=== PATIENT | female | born 1955 | race Caucasian/White ===

== ENCOUNTER 2018-06-16 14:48 | Outpatient (CLI) | payer BC | END 2018-06-16 14:49 | disposition home or self-care (01) | LOC: BICMAMMO 14:48 | PROVIDERS: ATTEND Family Medicine | DX: Z12.31 Encounter for screening mammogram for malignant neoplasm of breast (principal) | CPT/HCPCS: 77063; 77067 ==

== ENCOUNTER 2019-08-03 08:44 | Emergency (ER) | payer BC ==
[2019-08-03] MEDS ORDERED: Ketorolac Tromethamine 30 MG/ML VIAL ONE (09:49)
--- NOTE | 2019-08-03 10:20 | ULT ---
VENOUS ULTRASOUND LEFT LOWER EXTREMITY: DATE: 08/03/2019. COMPARISON: None. HISTORY: Recent travel, left lower extremity pain, assess for DVT. TECHNIQUE: Multiplanar guzman scale sonographic imaging venous structures of the left lower extremity obtained wit h color flow and spectral analysis. FINDINGS: Left common femoral vein, greater saphenous vein, profunda femoral vein, femoral vein, popliteal vein , and posterior tibial vein are patent. Normal blood flow, augmentation, and compression. No eviden ce for DVT. IMPRESSION: No evidence for deep venous thrombosis of the left lower extremity. POS: OFF
== END 2019-08-03 10:47 | disposition home or self-care (01) ==
LOC: SCSER 08:44
DX: S76.312A Strain of muscle, fascia and tendon of the posterior muscle group at thigh level, left thigh, initial encounter (principal); X58.XXXA Exposure to other specified factors, initial encounter
CPT/HCPCS: 96372; J1885

== ENCOUNTER 2019-08-05 03:56 | Emergency (ER) | payer BC ==
[2019-08-05] MEDS ORDERED: Ketorolac Tromethamine 30 MG/ML VIAL ONE (04:45)
[2019-08-05 05:23] LABS: Bacteria/HPF None Seen HPF (None Seen); Bilirubin Negative (Negative); Blood, Urine Trace (Negative); Clarity Clear (Clear); Glucose, Urine (Dipstick) Normal (Negative); Leukocyte Negative Leu/uL (Negative); Nitrite Negative (Negative); Protein, Urine (Dipstick) Negative (Neg-Trace); Squamous Epithelial None Seen HPF (0-3); Urobilinogen Normal mg/dL (Less than 2); WBC/HPF 0-3 HPF (0-3)
[2019-08-05 06:25] LABS: #Eosinphils 0.1 thou/uL (0.0-0.7); #Lymphocytes 2.3 thou/uL (1.20-3.40); #Monocytes 0.7 thou/uL (0.11-0.59); #Neutrophils 3.7 thou/uL (1.40-6.50); %Basophils 0.6 % (0.0-1.0); %Eosinophils 1.7 % (0.0-10.0); %Monocytes 10.1 % (0.0-10.0); %Neutrophils 53.7 % (42.0-75.0); Hemoglobin 12.9 g/dL (12.0-16.0); Mean Corpuscular HGB CONC 33.8 g/dL (32.0-36.0); Mean Corpuscular Hemoglobin 31.7 pg (27.0-31.0); Mean Corpuscular Volume 93.6 fL (78.0-98.0); Mean Platelet Volume 6.4 fL (7.4-10.4); Platelet Count 257 thou/uL (130-400); RBC Distribution Width 11.8 % (11.5-14.5); Red Blood Cell (RBC) Count 4.06 mill/uL (4.20-5.40); White Blood Cell (WBC) Count 6.9 thou/uL (4.8-10.8)
[2019-08-05 06:46] LABS: ALT (SGPT) 12 U/L (8-55); AST (SGOT) 17 U/L (5-34); Albumin 4.2 g/dL (3.4-4.8); Alkaline Phosphatase 71 U/L (40-150); Anion Gap 11 mmol/L (10-20); BUN (Urea Nitrogen) 15 mg/dL (9.8-20.1); Bilirubin, Total 0.4 mg/dL (0.2-1.2); Calc. Creatinine Clearance 0 mL/min (70-130); Calcium 9.7 mg/dL (7.8-10.44); Carbon Dioxide 28 mmol/L (23-31); Chloride 103 mmol/L (98-107); Estimated GFR-MDRD 78; Globulin 2.8 g/dL (2.4-3.5); Glucose 99 mg/dL (80-115); Lipase 63 U/L (8-78); Potassium 3.5 mmol/L (3.5-5.1); Sodium 138 mmol/L (136-145)
== END 2019-08-05 07:10 | disposition home or self-care (01) ==
LOC: ERS 03:56
DX: M54.5 Low back pain (principal); R10.30 Lower abdominal pain, unspecified
CPT/HCPCS: 36415; 80053; 81003; 81015; 83690; 85025; 96372; 99283; J1885

== ENCOUNTER 2019-08-06 16:15 | Emergency (ER) | payer BC ==
[2019-08-06 16:59] LABS: #Basophils 0.1 thou/uL (0.0-0.2); #Eosinphils 0.1 thou/uL (0.0-0.7); #Lymphocytes 2.1 thou/uL (1.20-3.40); #Monocytes 0.6 thou/uL (0.11-0.59); #Neutrophils 4.7 thou/uL (1.40-6.50); %Basophils 1.1 % (0.0-1.0); %Eosinophils 0.8 % (0.0-10.0); %Lymphocytes 27.7 % (21.0-51.0); %Monocytes 8.5 % (0.0-10.0); %Neutrophils 61.9 % (42.0-75.0); Hemoglobin 13.7 g/dL (12.0-16.0); Mean Corpuscular HGB CONC 34.4 g/dL (32.0-36.0); Mean Corpuscular Hemoglobin 31.2 pg (27.0-31.0); Mean Corpuscular Volume 90.6 fL (78.0-98.0); Mean Platelet Volume 6.2 fL (7.4-10.4); Platelet Count 267 thou/uL (130-400); White Blood Cell (WBC) Count 7.5 thou/uL (4.8-10.8)
[2019-08-06] MEDS ORDERED: Fentanyl 100 MCG/2 ML VIAL ONE ×2 (17:12→18:19)
[2019-08-06 17:13] LABS: ALT (SGPT) 28 U/L (8-55); AST (SGOT) 37 U/L (5-34); Albumin 4.4 g/dL (3.4-4.8); Alkaline Phosphatase 74 U/L (40-150); Anion Gap 13 mmol/L (10-20); BUN (Urea Nitrogen) 14 mg/dL (9.8-20.1); Bilirubin, Total 0.4 mg/dL (0.2-1.2); CK (CPK) 64 U/L (29-168); Calc. Creatinine Clearance 0 mL/min (70-130); Carbon Dioxide 28 mmol/L (23-31); Chloride 103 mmol/L (98-107); Estimated GFR-MDRD 64; Globulin 3.2 g/dL (2.4-3.5); Glucose 136 mg/dL (80-115); Potassium 3.6 mmol/L (3.5-5.1); Protein, Total 7.6 g/dL (6.0-8.3); Sodium 140 mmol/L (136-145)
[2019-08-06 17:27] LABS: Bilirubin Negative (Negative); Blood, Urine Small (Negative); Glucose, Urine (Dipstick) Negative (Negative); Leukocyte Small (Negative); Nitrite Negative (Negative); Protein, Urine (Dipstick) Trace mg/dL (Neg-Trace); Urobilinogen 0.2 mg/dL (Less than 2)
[2019-08-06 17:30] LABS: Clarity Hazy (Clear)
[2019-08-06 17:33] LABS: Bacteria/HPF 1+ HPF (None Seen); RBC/HPF 0-3 HPF (0-3); WBC/HPF 0-3 HPF (0-3)
--- NOTE | 2019-08-06 19:43 | CT ---
CT OF THE ABDOMEN AND PELVIS WITH IV CONTRAST: 08/06/19 HISTORY: History of abdominal and back pain for a week. COMPARISON: None. FINDINGS: Lung bases are clear. No focal hepatic lesion is evident. The pancreas, adrenal glands and kidneys appear within normal limits. The spleen is normal appearing. No free fluid or enlarged lymph nodes are evident. There are mild vascular calcifications involving the distal abdominal aorta. The reproductive structures, bladder, rectum and perirectal soft tissues are unremarkable appearing. There is a mild amount of retained stool within the colon. There is a normal sized retrocecal appendi x. The appendix is normal in caliber. No lymphadenopathy or free fluid is evident. There is mild heterotopic ossification involving the left greater trochanter. Small bone island is se en within the right aspect of the sacrum. There is scattered degenerative and osteoarthritic change. Benign bone hemangiomas within T12. There is also bone hemangioma within L3. IMPRESSION: No acute abnormality. POS: BH
== END 2019-08-06 20:40 | disposition home or self-care (01) ==
LOC: SCSER 16:15
DX: K59.00 Constipation, unspecified (principal); Z79.899 Other long term (current) drug therapy
CPT/HCPCS: 36415; 74177; 80053; 81003; 81015; 82550; 85025; 85652; 86140; 96374; 96375; 96376; J1170; J3010

== ENCOUNTER 2019-08-07 03:01 | Emergency (ER) | payer BC ==
[2019-08-07] MEDS ORDERED: Ondansetron ODT 4 MG TAB ONE (03:29)
[2019-08-07] MEDS ORDERED: Fleet Enema 133 ML BOT ONE (03:31)
[2019-08-07] MEDS ORDERED: Bisacodyl 10 MG SUPP ONE (04:21)
--- NOTE | 2019-08-07 08:03 | RAD ---
RADIOGRAPH CHEST ONE VIEW RADIOGRAPH ABDOMEN 2 VIEWS: DATE: 08/07/2019 HISTORY: 64-year-old female with abdominal pain, nausea, and emesis. FINDINGS: There are no airspace densities or pulmonary edema. The lateral costophrenic angles are sharp. There is no cardiomegaly. There is no evidence of pneumothorax or pneumoperitoneum. There is no evidence of dilated small bowel loops, differential air-fluid levels, or organomegaly. En teric contrast material and moderately large volume of stool, in right hemicolon. Large amount of colonic gas throughout the large intestine. IV contrast material in the urinary bladder. These are al l from recent CT. IMPRESSION: 1) No acute cardiopulmonary findings. 2) no evidence of bowel obstruction.
== END 2019-08-07 05:34 | disposition home or self-care (01) ==
LOC: SCSER 03:01
DX: K59.00 Constipation, unspecified (principal); M54.5 Low back pain
CPT/HCPCS: 74022; Q0162

== ENCOUNTER 2019-08-08 03:53 | Observation (INO) | payer BC ==
[2019-08-08] MEDS ORDERED: Ketorolac Tromethamine 30 MG/ML VIAL ONE (05:03)
[2019-08-08 05:36] LABS: #Basophils 0.1 thou/uL (0.0-0.2); #Eosinphils 0.1 thou/uL (0.0-0.7); #Lymphocytes 2.5 thou/uL (1.20-3.40); #Monocytes 0.7 thou/uL (0.11-0.59); #Neutrophils 5.8 thou/uL (1.40-6.50); %Basophils 0.8 % (0.0-1.0); %Eosinophils 0.8 % (0.0-10.0); %Lymphocytes 27.7 % (21.0-51.0); %Monocytes 7.1 % (0.0-10.0); %Neutrophils 63.5 % (42.0-75.0); Hemoglobin 14.9 g/dL (12.0-16.0); Mean Corpuscular HGB CONC 34.3 g/dL (32.0-36.0); Mean Corpuscular Hemoglobin 30.9 pg (27.0-31.0); Mean Corpuscular Volume 90.2 fL (78.0-98.0); Mean Platelet Volume 5.6 fL (7.4-10.4); Platelet Count 284 thou/uL (130-400); RBC Distribution Width 11.6 % (11.5-14.5); Red Blood Cell (RBC) Count 4.81 mill/uL (4.20-5.40); White Blood Cell (WBC) Count 9.1 thou/uL (4.8-10.8)
[2019-08-08 05:40] LABS: Anion Gap 13 mmol/L (10-20); BUN (Urea Nitrogen) 20 mg/dL (9.8-20.1); Calc. Creatinine Clearance 0 mL/min (70-130); Calcium 10.2 mg/dL (7.8-10.44); Carbon Dioxide 29 mmol/L (23-31); Chloride 99 mmol/L (98-107); Estimated GFR-MDRD 62; Glucose 113 mg/dL (80-115); Potassium 3.8 mmol/L (3.5-5.1); Sodium 137 mmol/L (136-145)
[2019-08-08 06:26] LABS: Bilirubin Negative (Negative); Blood, Urine Small (Negative); Clarity Slightly Cloudy (Clear); Glucose, Urine (Dipstick) Negative (Negative); Leukocyte Small (Negative); Nitrite Negative (Negative); Protein, Urine (Dipstick) 30 mg/dL (Neg-Trace); Urobilinogen 0.2 mg/dL (Less than 2)
[2019-08-08] MEDS ORDERED: Morphine 4 MG/ML VIAL ONE (06:32)
[2019-08-08 06:33] LABS: Bacteria/HPF Rare-Few HPF (None Seen); RBC/HPF 0-3 HPF (0-3); Squamous Epithelial 0-3 HPF (0-3); WBC/HPF 0-3 HPF (0-3)
[2019-08-08] MEDS ORDERED: Acetaminophen 325 MG TAB ONE (07:45)
--- NOTE | 2019-08-08 07:47 | CT ---
CTA OF THE THORAX UTILIZING IV CONTRAST AND PE PROTOCOL AND 3D REFORMATTED IMAGING: INDICATION: A 64-year-old female with back pain and recent travel out of the country. COMPARISON: None. FINDINGS: No central or segmental pulmonary embolus is evident. There is mild ectasia of the ascending aorta m easuring 3.2 cm. No enlarged lymph nodes are evident. No confluent airspace opacity or pleural effu amira is evident. No pneumothorax is demonstrated. Visualized upper abdomen reveals no acute abnorma lity. No acute osseous abnormality is evident. IMPRESSION: 1. No central or segmental pulmonary embolus. 2. Mild ectasia of the ascending aorta 3. No acute cardiopulmonary abnormality. POS: BH
--- NOTE | 2019-08-08 08:54 | PDOC.FPRHP ---
- History of Present Illness Chief Complaint: back pain History of Present Illness: Patient has visited an outside ED multiple times this week with back pain. She reports that on 07/25 she had a R hamstring strain and had been seen by Dr. Trotter, who encouraged her to rest. She noticed on 07/31 she started to develop lower back pain that she describes as dull, hot, constant pain. On 08/02 she had been traveling on a [place] from [place] and had a hard time getting comfortable. On 08/03 She was first seen at the ED in [facility] and they prescribed her tylenol 3, which she reported did not help her pain. That night she started to notice some mid-back pain. On 08/06 she was re-evaluated by Dr Trotter who said that her hamstring was recovering well, and said that her back pain may be related to IT band strain. She also had some reported nausea and vomiting, but this only occurred after she had the CT scan at the [facility] ED. She has had reported constipation as well, with last BM . She states that she has also been having some upper back pain in between her shoulder blades, but that this is likely due to her not being able to get comfortable in bed the last few nights due to her lower back pain. She reports that the only thing that has improved her pain has been sitting in the hottub. She states that after she gets out of the hottub she will have relief of the pain for 20-30 minutes before it returns. She states that the morphine and toradol that she received in the ED have not helped. Denies cp, sob, symptoms of saddle anesthesia, numbness or weakness in lower extremities, incontinence. Denies recent trauma to her back, recent MVA. She does lift weights and reports that she does do deadlifts, and had been working out during the time period between 07/25-07/31. ED Course: During her multiple ED visits she has received Toradol, morphine, ketorolac, dilaudid, and fentanyl for pain. - Allergies/Adverse Reactions Allergies Allergy/AdvReac Type Severity Reaction Status Date / Time prochlorperazine Allergy Verified 08/08/19 09:14 [From Compazine] - Home Medications Medication Instructions Recorded Confirmed Type Restasis [Restasis Ophth Drops] 1 drop EA EAR BID 08/08/19 08/08/19 History - History PMHx: none PSHx: face lift FHx: dad- SD requiring triple vessel CABG Social: social etoh use, no drugs, no smoking - Review of Systems General: denies: fever/chills, weight/appetite/sleep changes Eyes: denies: eye pain, vision changes ENT: denies: nasal congestion, rhinorrhea Respiratory: denies: cough, shortness of breath Cardiovascular: denies: chest pain, palpitation Gastrointestinal: reports: vomiting (after CT contrast), constipation. denies: diarrhea Genitourinary: denies: incontinence, dysuria Skin: denies: rashes, lesions Musculoskeletal: reports: pain (lower back pain) Neurological: denies: syncope, seizure Psychological: denies: anxiety, depression - Vital signs BP: [178/102] HR: [89] RR: [16] Tmax: [98.5] Pox: [95]% on [RA] Wt: [74kg] - Physical Exam Constitutional: NAD, awake, alert and oriented, well developed HEENT: normocephalic and atraumatic, no scleral icterus Neck: supple, FROM Chest: no-tender to palpation, no lesions Heart: RRR, normal S1/S2 Lungs: CTAB, no wheezing Abdomen: soft, other (ttp LLQ) Musculoskeletal: normal tone, ROM grossly normal (paraspinal tenderness along lumbar spine, more on the L than R) Neurological: no focal deficit, CN II-XII intact, normal sensation Skin: no rash/lesions, good turgor Heme/Lymphatic: no unusual bruising or bleeding, no purpura Psychiatric: normal mood and affect, good judgment and insight FMR H&P: Results - Labs Result Diagrams: 08/08/19 05:19 08/08/19 05:19 Lab results: WBC 9.1 thou/uL (4.8-10.8) 08/08/19 05:19 Hgb 14.9 g/dL (12.0-16.0) 08/08/19 05:19 Hct 43.4 % (36.0-47.0) 08/08/19 05:19 MCV 90.2 fL (78.0-98.0) 08/08/19 05:19 Plt Count 284 thou/uL (130-400) 08/08/19 05:19 Neutrophils % 63.5 % (42.0-75.0) 08/08/19 05:19 Sodium 137 mmol/L (136-145) 08/08/19 05:19 Potassium 3.8 mmol/L (3.5-5.1) 08/08/19 05:19 Chloride 99 mmol/L (98-107) 08/08/19 05:19 Carbon Dioxide 29 mmol/L (23-31) 08/08/19 05:19 BUN 20 mg/dL (9.8-20.1) 08/08/19 05:19 Creatinine 0.92 mg/dL (0.6-1.1) 08/08/19 05:19 Glucose 113 mg/dL (80-115) 08/08/19 05:19 Lactic Acid 1.2 mmol/L (0.5-2.2) 08/08/19 05:19 Calcium 10.2 mg/dL (7.8-10.44) 08/08/19 05:19 Urine Ketones Trace mg/dL (Negative) A 08/08/19 06:19 Urine Blood Small (Negative) A 08/08/19 06:19 Urine Nitrite Negative (Negative) 08/08/19 06:19 Ur Leukocyte Esterase Small (Negative) H 08/08/19 06:19 Urine RBC 0-3 HPF (0-3) 08/08/19 06:19 Urine WBC 0-3 HPF (0-3) 08/08/19 06:19 Ur Squamous Epith Cells 0-3 HPF (0-3) 08/08/19 06:19 Urine Bacteria Rare-Few HPF (None Seen) 08/08/19 06:19 - Radiology Interpretation US - venous Status: report reviewed by me (No evidence of DVT) Abdominal x-ray Status: report reviewed by me (Negative for bowel obstruction or cardiopulmonary process) CT scan - chest Status: report reviewed by me (No evidence for PE, mild ectasia ascending aorta , no acute cardiopulmonary abnormalities) CT scan - abdomen Status: report reviewed by me (Mild heterotopic ossification involving the left greater trochanter. Small bone island is seen within the right aspect of the sacrum. There is scattered degeneartive and osteoarthritic change. Benign bone hemangiomas within T12. There is also bone hemangioma within L3.) FMR H&P: A/P - Problem List (1) Paraspinal muscle spasm Current Visit: Yes Status: Acute Code(s): M62.830 - MUSCLE SPASM OF BACK - Plan Patient is a 64F with no remarkable PMHx presenting with several days of lower back pain that has persisted despite pain medication at the ED. #Lower back pain likely 2/2 Paraspinal muscle spasm -patient denies saddle anesthesia -ttp along paraspinal muscles of lumbar spine, L>R -no tenderness to spinal vertebrae -No reported trauma to the back -WBC wnl 9.1 -MRI of lumbar spine -pain management with morphine and toradol for now, will de-escalate as tolerated Diet: Regular DVT: lovenox Code: Full Dispo: obs for back pain workup and pain management FMR H&P: Upper Level - Pertinent history 64 year old female presents with intractable low back pain. Patient has no significant PMH. She states that on July 25, she pulled a hamstring. She went and saw Sports Medicine who confirmed torn/pulled hamstring. She rested for a week and then resumed PT where she was only doing upper body work. Patient states that a little over a week ago, her lower back started to hurt. She describes it as a dull, aching pain across her lower back, extending to thoracic region. Patient denies any associated lower extremity numbness or tingly. She states that the pain become excruciating at times and she has been unable to sleep. She has tried flexiril, ibuprofen, tylenol and tylenol #3 for pain without relief. Patient states she saw Sports Medicine for this pain, as well. They sent her to ER for further imaging, but she never got that. Instead she got abdominal series, abdomen/pelvis CT and CTA of chest. She does report constipation which she states causes nausea. However, when she went in to ER for N/V she says that the N/V was secondary to having to drink the contrast for the CT scan she had done the prior day. Patient denies any recent trauma aside from the hamstring pull. She does workout. - Pertinent findings General: Alert and oriented x3 HEENT: MMM Card: RRR Resp: CTA BL, no acute respiratory distress Abdomen: Soft, non-tender Ext: No cyanosis or edema Neuro: Sensation intact, strength 5/5 LE's MSK: Tenderness to palpation of lumbar paraspinal musculature - Plan Date/Time: 08/08/19 9651 I, Damaris Andrews, have evaluated this patient and agree with findings/plan as outlined by [employer] certified internetwork expert resident. Pertinent changes/additions are listed here. Intractable back pain - Not controlled w/ acetaminophen, ibuprofen, or tylenol #3 - Morphine PRN, toradol q8h until tomorrow - Will give steroid dose to help with inflammation - MRI lumbar spine pending for further evaluation - Previous imaging shows some hemangiomas on lumbar and thoracic spine, which likely aren't contributing to current condition - Likely MSK in nature DVT PPX: Lovenox Code Status: Full Dispo: Obs on medical. Anticipate LOS <48 hours. Addendum - Attending - Attending Attestation Date/Time: 08/08/191923 I personally evaluated the patient and discussed the management with Dr. Quick. I agree with the History, Examination, Assessment and Plan documented above with any addition or exceptions noted below. The patient presents with intractable back pain that has been present and and moving around her back for the past week. She has a history of recent hamstring strain. She has been to the ER multiple times and received testing as mentioned above. Will get MRI of the lumbar spine. Will work to achieve adequate pain control. Trial of steroids, muscle relaxer, nsaids.
[2019-08-08] MEDS ORDERED: Ondansetron ODT 4 MG TAB SL PRN (09:15)
[2019-08-08] MEDS ORDERED: Ondansetron PF 4 MG/2 ML Vial IVP PRN (09:15)
[2019-08-08] MEDS ORDERED: Docusate 100 MG CAP PO PRN (09:22)
[2019-08-08] MEDS ORDERED: Bisacodyl 5 MG TAB PO PRN (09:42)
[2019-08-08] MEDS ORDERED: Senokot S 8.6-50 MG TAB PO PRN (09:42)
[2019-08-08] MEDS ORDERED: Polyethylene Glycol 3350 17 GM Packet PO PRN (09:53)
[2019-08-08 10:18] VITALS: BMI 24.7
[2019-08-08] MEDS ORDERED: Iopamidol 370 76% 100 ML VIAL ONE (10:33)
[2019-08-08] MEDS ORDERED: Morphine 2 MG/ML SYRINGE SLOW IVP PRN ×2 (10:36→19:15)
[2019-08-08] MEDS: Morphine 4 MG/ML VIAL SLOW IVP PRN ×2 (10:40→15:34)
[2019-08-08] MEDS ORDERED: Gadobenate Dimeglumine 529 MG/1 ML (20ML VIAL) ONE (10:40)
[2019-08-08] MEDS ORDERED: Acetaminophen 325 MG TAB PO PRN ×2 (11:50→19:15)
[2019-08-08] MEDS ORDERED: hydrALAZINE 20 MG/ML VIAL SLOW IVP PRN (12:17)
[2019-08-08] MEDS ORDERED: Ketorolac Tromethamine 30 MG/ML VIAL IVP SCH (14:00)
--- NOTE | 2019-08-08 14:11 | MRI ---
EXAM: MRI Lumbar Spine W WO Con PROVIDED CLINICAL HISTORY: Back pain COMPARISON: None FINDINGS: Lumbar alignment appears normal. Vertebral body heights are preserved. No focal concerning regional m arrow signal abnormality. Hemangiomas are noted at L3 and T12. The conus medullaris is normal in signal and terminates at an appropriate level. There is no significant central canal or foraminal jake rowing apparent. Mild bilateral facet arthritis at L4-5 and L5-S1. Circumscribed T2 hyperintensity is noted adjacent to the right L5 and S1 nerve roots, probably reflecting dilated nerve root sleeves versus less likely synovial cyst arising from the right L5-S1 facet joint.. No abnormal contrast enhancement is identified. IMPRESSION: Lower lumbar spine facet degeneration as described.
[2019-08-08] MEDS ORDERED: Dexamethasone 4 mg/ml Vial SLOW IVP SCH (18:15)
[2019-08-08] MEDS ORDERED: Polyethylene Glycol 3350 17 GM Packet PO SCH (18:45)
[2019-08-08] MEDS ORDERED: Ondansetron HCl/PF 4 MG in Sodium Chloride 0.9% 50 ML IVPB PRN (19:15)
[2019-08-08] MEDS ORDERED: Morphine 4 MG/ML VIAL SLOW IVP PRN (19:15)
[2019-08-08] MEDS ORDERED: Ondansetron ODT 4 MG TAB PO PRN (19:17)
[2019-08-08] MEDS: Baclofen 10 MG TAB PO SCH (20:29)
[2019-08-08] MEDS: Docusate 100 MG CAP PO SCH (20:30)
--- NOTE | 2019-08-09 05:17 | PDOC.FM ---
- Subjective Subjective: Patient reports that her pain has much improved, 1/10 this morning. Has not required pain medication overnight. Agreeable to current plan of care. - Objective Vital Signs & Weight: Vital Signs (12 hours) Temp Pulse Resp BP Pulse Ox 08/09/19 00:00 97.7 F 83 18 131/83 94 L 08/08/19 20:00 98.5 F 82 18 151/95 H 94 L 08/08/19 19:43 94 L Weight Weight 74 kg Result Diagrams: 08/08/19 05:19 08/08/19 05:19 Phys Exam - Physical Examination Constitutional: NAD HEENT: moist MMs, sclera anicteric Neck: supple, full ROM Respiratory: no wheezing, clear to auscultation bilateral Cardiovascular: RRR, no significant murmur Gastrointestinal: soft, non-tender Musculoskeletal: no edema, pulses present Neurological: normal sensation, moves all 4 limbs Lymphatic: no nodes Psychiatric: normal affect, A&O x 3 Skin: normal turgor, cap refill <2 seconds Dx/Plan (1) Paraspinal muscle spasm Code(s): M62.830 - MUSCLE SPASM OF BACK Status: Acute - Plan Plan: Patient is a 64F with no remarkable PMHx presenting with several days of lower back pain that has persisted despite pain medication at the ED. #Lower back pain likely 2/2 Paraspinal muscle spasm -patient denies saddle anesthesia -ttp along paraspinal muscles of lumbar spine, L>R on admission -no tenderness to spinal vertebrae -No reported trauma to the back -WBC wnl 9.1 -MRI of lumbar spine: Circumscribed T2 hyperintenisty is noted adjacent to the right L5 and S1 nerve roots, likely reflecting dilated nerve root sleeves vs less likely synovial cyst arising from the right L5-S1 facet joint. Lower lumbar spin facet degeneration. -required 2 doses morphine and 1 dose toradol yesterday for her pain. Has not required any pain medications overnight -started baclofen last night and gave patient a dexamethasone injection to reduce inflammation Diet: Regular DVT: lovenox Code: Full Dispo: obs for back pain workup and pain management, likely d/c today with steroid dose pack, baclofen, and IBP Addendum - Attending - Attending Attestation Date/Time: 08/09/19 4201 I personally evaluated the patient and discussed the management with Dr. Quick. I agree with the History, Examination, Assessment and Plan documented above with any addition or exceptions noted below. Pt reports that pain is much better this morning. Will d/c home with medrol dosepack and baclofen.
[2019-08-09 07:36] VITALS: BP 139/87; TEMP 98.1
[2019-08-09] MEDS: Baclofen 10 MG TAB PO SCH (08:40)
[2019-08-09] MEDS: Docusate 100 MG CAP PO SCH (08:40)
[2019-08-09] MEDS ORDERED: Enoxaparin Sodium 40 MG/0.4 ML SYRINGE SC SCH (09:00)
[2019-08-09] MEDS ORDERED: Polyethylene Glycol 3350 17 GM Packet PO SCH (09:00)
--- NOTE | 2019-08-09 17:06 | DIS ---
DATE OF ADMISSION: 08/08/2019 DATE OF DISCHARGE: 08/09/2019 ADMITTING RESIDENT: Antonieta Quick MD ADMITTING ATTENDING: Tisha Meléndez MD DISCHARGE RESIDENT: Antonieta Quick MD DISCHARGE ATTENDING: MD Medhat CONSULTS: None. PROCEDURES: None. IMAGING: Venous ultrasound, no evidence of DVT. Abdominal x-ray, negative for bowel obstruction or cardiopulmonary process. CT scan of the chest, no evidence for PE, mild ectasia of ascending aorta, no acute cardiopulmonary abnormalities. CT abdomen, mild heterotopic ossification involving the left greater trochanter. Small bone island is seen within the right aspect of the sacrum. There are scattered degenerative and/or osteoarthritic change. Benign bone hemangiomas within T12. There is also bone hemangioma within L3. Lumbar MRI: circumscribed T2 hyperintensities noted adjacent to the right L5 and S1 nerve roots, likely reflecting dilated nerve root sleeves versus less likely synovial cyst arising from the right L5-S1 facet joint. Lower lumbar spine facet degeneration. PRIMARY DIAGNOSIS: Paraspinal muscle strain. SECONDARY DIAGNOSIS: None. DISCHARGE MEDICATIONS: 1. Baclofen 10 mg b.i.d. x30 days. 2. One Medrol Dosepak. 3. Ibuprofen 800 mg q.8 hours x7 days p.r.n. for pain. 4. Restasis. Discontinue medications: 1. Morphine. 2. Toradol. 3. MiraLAX. 4. Docusate. 5. Dulcolax. 6. Senokot. 7. Zofran. 8. Decadron. HISTORY OF PRESENT ILLNESS/HOSPITAL COURSE: The patient presented to the ED via transfer from [facility] after presenting multiple times the previous week to the [facility] ED for lower back pain. The patient was evaluated and found to have no tenderness to palpation of the spinous processes, but tenderness to palpation on the paraspinous muscles, left greater than right. She had no symptoms of saddle anesthesia, incontinence, or lower extremity weakness or paresthesias. She had a lumbar MRI, results above. She was given morphine and Toradol during the day, with baclofen and Decadron added during the afternoon. She required no pain medication overnight and reported that her pain had greatly improved the morning of discharge. She was agreeable to being discharged with baclofen, Medrol Dosepak , and ibuprofen for pain. DISPOSITION: Stable. DISCHARGE INSTRUCTIONS: 1. Location: Home. 2. Diet: Regular. 3. Activity: As tolerated. 4. Followup: Follow up within 14 days with PCP. Job ID: [id number]
== END 2019-08-09 13:00 | disposition home or self-care (01) ==
LOC: SCSER 03:53 → T4-A 08:23
PROVIDERS: ADMIT Family Medicine; ATTEND Family Medicine
DX: M62.830 Muscle spasm of back (principal); K59.00 Constipation, unspecified; D18.09 Hemangioma of other sites; Z88.8 Allergy status to other drugs, medicaments and biological substances
CPT/HCPCS: 71275; 72158; 80048; 81003; 81015; 83605; 85025; 96361; 96374; 96375; 96376; A9577; G0378; J1100; J1885; J2270; Q0162; Q9967

== ENCOUNTER 2023-07-02 09:39 | Outpatient (CLI) | payer BC | END 2023-07-02 09:40 | disposition home or self-care (01) | LOC: RAD 09:39 | PROVIDERS: ATTEND Family Medicine | DX: J20.9 Acute bronchitis, unspecified (principal) | CPT/HCPCS: 71046 ==

== ENCOUNTER 2024-06-06 12:52 | Inpatient (IN) | payer BC ==
[2024-06-06] MEDS ORDERED: Pantoprazole 40 MG VIAL ONE (13:17)
[2024-06-06] MEDS ORDERED: Aspirin Chewable 81 MG TAB ONE (13:17)
[2024-06-06] MEDS ORDERED: Nitroglycerin 2% Ointment 1 INCH/1 GM Packet ONE (13:17)
[2024-06-06 13:39] LABS: #Basophils 0.03 10x3/uL (0.0-0.2); %Basophils 0.7 % (0.0-1.0); %Eosinophils 1.3 % (0.0-10.0); %Lymphocytes 40.4 % (21.0-51.0); %Monocytes 10.2 % (0.0-10.0); %Neutrophils 47.2 % (42.0-75.0); Hemoglobin 11.8 g/dL (12.0-16.0); Mean Corpuscular HGB CONC 33.7 g/dL (32.0-36.0); Mean Corpuscular Hemoglobin 30.6 pg (27.0-31.0); Mean Corpuscular Volume 90.9 fL (78.0-98.0); Mean Platelet Volume 9.4 fL (7.4-10.4); Platelet Count 195 10x3/uL (130-400); RBC Distribution Width 12.5 % (11.5-14.5); Red Blood Cell (RBC) Count 3.85 mill/uL (4.20-5.40)
[2024-06-06 13:55] LABS: ALT (SGPT) 27 U/L (8-55); AST (SGOT) 32 U/L (5-34); Albumin 3.9 g/dL (3.4-4.8); Alkaline Phosphatase 89 U/L (40-110); Anion Gap 12 mmol/L (10-20); BUN (Urea Nitrogen) 20 mg/dL (9.8-20.1); Bilirubin, Total 0.3 mg/dL (0.2-1.2); Calc. Creatinine Clearance 0 mL/min (70-130); Carbon Dioxide 26 mmol/L (23-31); Chloride 107 mmol/L (98-107); Estimated GFR 89; Globulin 2.3 g/dL (2.4-3.5); Glucose 99 mg/dL (80-115); Lipase 22 U/L (8-78); Potassium 3.8 mmol/L (3.5-5.1); Protein, Total 6.2 g/dL (5.8-8.1); Sodium 141 mmol/L (136-145)
[2024-06-06 13:57] LABS: Troponin I Less than 0.010 ng/mL (< 0.028)
[2024-06-06] MEDS ORDERED: Acetaminophen 325 MG TAB PO PRN (16:10)
[2024-06-06 17:06] LABS: Cardiac Risk 3.8 (Less than 4.5)
[2024-06-06 18:26] LABS: A1c 66.455 g/dL; Hb (HGBA1c) 1969.6807 umol/L; Hemoglobin A1c 5.2 % (4.0-6.0)
[2024-06-06 18:34] VITALS: BMI 25.0
[2024-06-06 19:08] LABS: Troponin I Less than 0.010 ng/mL (< 0.028)
[2024-06-06 20:01] LABS: Amphetamine Not Detected (NotDetected); Barbiturates Screen Not Detected (NotDetected); Benzodiazepine Screen Not Detected (NotDetected); Cocaine Metabolite Screen Not Detected (NotDetected); Methadone Not Detected (NotDetected); Methamphetamine Not Detected (NotDetected); Opiate Screen Not Detected (NotDetected); Oxycodone Screen Not Detected (NotDetected); Phencyclidine (PCP) Not Detected (NotDetected); THC/Cannabinoid Screen Not Detected (NotDetected); Tricyclic Screen Not Detected (NotDetected)
[2024-06-06 21:53] LABS: Troponin I Less than 0.010 ng/mL (< 0.028)
[2024-06-06] MEDS: cycloSPORINE 0.05% Ophthalmic Droperette EA EYE SCH (22:17)
[2024-06-07 04:35] LABS: #Basophils 0.03 10x3/uL (0.0-0.2); %Basophils 0.5 % (0.0-1.0); %Eosinophils 2.2 % (0.0-10.0); %Lymphocytes 33.6 % (21.0-51.0); %Monocytes 12.2 % (0.0-10.0); %Neutrophils 51.5 % (42.0-75.0); Hematocrit 34.3 % (36.0-47.0); Hemoglobin 11.5 g/dL (12.0-16.0); Mean Corpuscular HGB CONC 33.5 g/dL (32.0-36.0); Mean Corpuscular Hemoglobin 30.7 pg (27.0-31.0); Mean Corpuscular Volume 91.7 fL (78.0-98.0); Mean Platelet Volume 9.7 fL (7.4-10.4); Platelet Count 189 10x3/uL (130-400); RBC Distribution Width 12.6 % (11.5-14.5); Red Blood Cell (RBC) Count 3.74 mill/uL (4.20-5.40)
[2024-06-07 04:52] LABS: ALT (SGPT) 22 U/L (8-55); AST (SGOT) 28 U/L (5-34); Albumin 3.3 g/dL (3.4-4.8); Alkaline Phosphatase 80 U/L (40-110); Anion Gap 12 mmol/L (10-20); BUN (Urea Nitrogen) 22 mg/dL (9.8-20.1); Bilirubin, Total 0.4 mg/dL (0.2-1.2); Calc. Creatinine Clearance 90 mL/min (70-130); Calcium 8.9 mg/dL (7.8-10.44); Carbon Dioxide 26 mmol/L (23-31); Chloride 107 mmol/L (98-107); Estimated GFR 91; Globulin 2.6 g/dL (2.4-3.5); Glucose 102 mg/dL (80-115); Potassium 4.5 mmol/L (3.5-5.1); Protein, Total 5.9 g/dL (5.8-8.1); Sodium 140 mmol/L (136-145)
[2024-06-07] MEDS: cycloSPORINE 0.05% Ophthalmic Droperette EA EYE SCH (13:11)
[2024-06-07] MEDS ORDERED: ADENOSINE 60 MG/20 ML SDV ONE (13:39)
[2024-06-08 05:15] LABS: #Basophils 0.03 10x3/uL (0.0-0.2); %Basophils 0.5 % (0.0-1.0); %Eosinophils 2.5 % (0.0-10.0); %Lymphocytes 39.9 % (21.0-51.0); %Monocytes 11.8 % (0.0-10.0); %Neutrophils 45.1 % (42.0-75.0); Hematocrit 34.9 % (36.0-47.0); Hemoglobin 11.9 g/dL (12.0-16.0); Mean Corpuscular HGB CONC 34.1 g/dL (32.0-36.0); Mean Corpuscular Hemoglobin 31.6 pg (27.0-31.0); Mean Corpuscular Volume 92.8 fL (78.0-98.0); Mean Platelet Volume 9.7 fL (7.4-10.4); Platelet Count 195 10x3/uL (130-400); RBC Distribution Width 12.6 % (11.5-14.5); Red Blood Cell (RBC) Count 3.76 mill/uL (4.20-5.40)
[2024-06-08 05:56] LABS: ALT (SGPT) 22 U/L (8-55); AST (SGOT) 26 U/L (5-34); Albumin 3.5 g/dL (3.4-4.8); Alkaline Phosphatase 78 U/L (40-110); Anion Gap 12 mmol/L (10-20); BUN (Urea Nitrogen) 15 mg/dL (9.8-20.1); Bilirubin, Total 0.4 mg/dL (0.2-1.2); Calc. Creatinine Clearance 88 mL/min (70-130); Calcium 9.3 mg/dL (7.8-10.44); Carbon Dioxide 25 mmol/L (23-31); Chloride 106 mmol/L (98-107); Estimated GFR 89; Globulin 2.6 g/dL (2.4-3.5); Glucose 102 mg/dL (80-115); Potassium 4.3 mmol/L (3.5-5.1); Protein, Total 6.1 g/dL (5.8-8.1); Sodium 139 mmol/L (136-145)
[2024-06-08 16:29] VITALS: BP 108/62; TEMP 98.3
== END 2024-06-08 17:01 | disposition home or self-care (01) | DRG 313 ==
LOC: ERS 12:52 → 2SW 14:44 → OBSVTOIN 06-08 09:53
PROVIDERS: ADMIT Student in an Organized Health Care Education/Training Program; ATTEND Student in an Organized Health Care Education/Training Program
DX: R07.89 Other chest pain (principal); I47.10 Supraventricular tachycardia, unspecified; K21.9 Gastro-esophageal reflux disease without esophagitis; F41.8 Other specified anxiety disorders; E78.5 Hyperlipidemia, unspecified; M19.90 Unspecified osteoarthritis, unspecified site; Z88.8 Allergy status to other drugs, medicaments and biological substances; Z79.899 Other long term (current) drug therapy; Z98.890 Other specified postprocedural states
CPT/HCPCS: 36415; 71045; 78452; 80053; 80061; 80306; 83036; 83690; 84443; 84484; 85025; 85379; 93005; 93017; A9502; C9113; G0378; J0153